=== PATIENT | female | born 1990 | race American Indian/Alaskan Native ===

== ENCOUNTER 2020-02-07 04:23 | Inpatient (IN) | payer OTHER ==
[2020-02-07] MEDS ORDERED: Tranexamic Acid 1,000 MG in Sodium Chloride 0.9% 100 ML IV PRN (08:27)
[2020-02-07] MEDS ORDERED: Lactated Ringers 1,000 ML IV ONE (08:27)
[2020-02-07] MEDS ORDERED: Ondansetron 4 MG/2 ML SDV IVPUSH PRN (08:27)
[2020-02-07] MEDS ORDERED: fentaNYL 100 MCG/2 ML SDV IVPUSH PRN (08:27)
[2020-02-07] MEDS ORDERED: Misoprostol 400 MCG (4 X 100 MCG TAB) RECTAL PRN (08:27)
[2020-02-07] MEDS ORDERED: Lidocaine 1% 30 ML SDV INJECT PRN (08:27)
[2020-02-07] MEDS ORDERED: Methylergonovine 0.2 MG/1 ML Amp IM PRN (08:27)
[2020-02-07] MEDS ORDERED: Sodium Chloride 0.9% 10 ML Syringe FLUSH PRN (08:27)
[2020-02-07] MEDS ORDERED: Carboprost Tromethamine 250 MCG/1 ML Amp IM PRN (08:27)
[2020-02-07] MEDS ORDERED: Butorphanol 2 MG/ML SDV IVPUSH PRN ×2 (08:27)
[2020-02-07] MEDS ORDERED: Lactated Ringers 1,000 ML IV SCH (08:30)
[2020-02-07] MEDS ORDERED: Oxytocin/Normal Saline 30 UNIT/500 ML BAG IV SCH (08:30)
--- NOTE | 2020-02-07 08:30 | PCM.LDHP ---
L&D History of Present Illness - General Date of Service: 02/07/20 Admit Problem/Dx: Patient Status Order with Admit Dx/Problem 02/07/20 08:28 Patient Status [ADT] Routine Admission Diagnosis/Problem Admission Diagnosis/Problem care Source of Information: Patient History Limitations: Reports: No Limitations - History of Present Illness Introduction:: 29-year-old at 39w0d presents to L&D for elective IOL. Patient is feeling well. Baby is active. She is having intermittent [place] contractions but nothing regular. No vaginal bleeding or leaking of fluid. No new concerns. has been complicated by impaired glucose tolerance. - Related Data Allergies/Adverse Reactions: Allergies Allergy/AdvReac Type Severity Reaction Status Date / Time ibuprofen Allergy Rash Verified 02/07/20 08:17 Home Medications: Home Meds #103/Iron Fumarate/Fa [ ] 1 tab PO DAILY 02/01/20 [History] Acetaminophen [Tylenol] 650 mg PO Q4H PRN tablet 02/08/20 [Rx] Docusate Sodium [Colace] 100 mg PO BID PRN cap 02/08/20 [Rx] Past Medical History Gastrointestinal History: Reports: Cholelithiasis Dermatologic History: Reports: Urticaria - Past Surgical History HEENT Surgical History: Reports: Adenoidectomy, Tonsillectomy Social & Family History - Family History Cardiac: Reports: CAD (Paternal grandfather, paternal uncle), Hypertension (Mother, father, sister, brother) Musculoskeletal: Reports: Arthritis (Mother) Psychiatric: Reports: Depression (Father) Endocrine/Metabolic: Reports: Diabetes, type II (Sister, Maternal grandmother, Paternal grandmother) Oncologic: Reports: Lung (Paternal aunt) - Tobacco Use Smoking Status *Q: Never Smoker - Sexual History Sexual History: Reports: Sexually Active, Single Partner - Living Situation & Occupation Living situation: Reports: Occupation: Employed H&P Review of Systems - Review of Systems: Review Of Systems: See Below General: Reports: No Symptoms HEENT: Reports: No Symptoms Pulmonary: Reports: No Symptoms Cardiovascular: Reports: No Symptoms Gastrointestinal: Reports: No Symptoms Genitourinary: Reports: No Symptoms Musculoskeletal: Reports: Back Pain Skin: Reports: No Symptoms Psychiatric: Reports: No Symptoms L&D Exam - Exam Exam: See Below - OB Specific Contraction Intensity: Irritability Movement: Active Heart Tones: Present Heart Tones per Min: 130 Heart Rate (FHR) Variability: Moderate (6-25 bmp) Presentation: Vertex - Alvarenga Score Alvarenga Score Cervix Position: Anterior Alvarenga Score Consistency: Soft Alvarenga Score Effacement: 51-70% Alvarenga Score Dilation: 3-4 cm Alvarenga Score Infant's Station: -1 ,0 Alvarenga Score Total: 10 - Exam General: Alert, Oriented Lungs: Clear to Auscultation, Normal Respiratory Effort Cardiovascular: Regular Rate, Regular Rhythm. No: Systolic Murmur, Diastolic Murmur Extremities: Pedal Edema (Trace bilaterally) Skin: Warm, Dry, Intact - Patient Data Lab Results Last 24 hrs: Laboratory Results - last 24 hr 02/07/20 Range/Units 07:50 SARS-CoV-2 RNA (RT-PCR) Negative (NEGATIVE) Result Diagrams: 02/07/20 08:29 - Problem List (1) care SNOMED Code(s): 748300342, 94297153, 496815668, 438986472 ICD Code: Z34.90 - ENCNTR FOR SUPRVSN OF NORMAL , UNSP, UNSP TRIMESTER Status: Acute (2) Impaired glucose in , antepartum SNOMED Code(s): 164208226, 603120127 ICD Code: O99.810 - ABNORMAL GLUCOSE COMPLICATING Status: Acute Problem List Initiated/Reviewed/Updated: Yes Orders Last 24hrs: Active Orders 24 hr Category Date Time Status Patient Status [ADT] Routine ADT 02/07/20 08:28 Ordered Communication Order [RC] ASDIRECTED Care 02/07/20 08:28 Ordered Heart Tones [RC] PER UNIT ROUTINE Care 02/07/20 08:28 Ordered Nitrous Oxide Delivery [RC] ASDIRECTED Care 02/07/20 08:30 Ordered Notify Provider Vital Signs OB [RC] ASDIRECTED Care 02/07/20 08:28 Ordered Notify Provider [RC] PRN Care 02/07/20 08:28 Ordered OB Discontinue Nitrous Oxide [RC] ASDIRECTED Care 02/07/20 08:30 Ordered Pump Management, Intrathecal [RC] ASDIRECTED Care 02/07/20 08:27 Ordered Up ad Paty [RC] ASDIRECTED Care 02/07/20 08:28 Ordered Vital Signs [RC] PER UNIT ROUTINE Care 02/07/20 08:28 Ordered Clear Liquid Diet [DIET] Diet 02/07/20 Lunch Ordered CBC W/O DIFF,HEMOGRAM [HEME] Routine Lab 02/07/20 08:16 Ordered Acetaminophen [Tylenol] Med 02/07/20 08:27 Ordered 650 mg PO Q4H PRN Butorphanol [Stadol] Med 02/07/20 08:27 Ordered 0.5 mg IVPUSH Q3H PRN Butorphanol [Stadol] Med 02/07/20 08:27 Ordered 1 mg IVPUSH Q3H PRN Carboprost Tromethamine [Hemabate DS] Med 02/07/20 08:27 Ordered 250 mcg IM ASDIRECTED PRN Lactated Ringers @ 125 MLS/HR(1000ml) Med 02/07/20 08:30 Ordered Lactated Ringers [Ringers, Lactated] 1,000 ml IV ASDIRECTED Lactated Ringers [Ringers, Lactated] 1,000 ml Med 02/07/20 08:27 Ordered IV BOLUS Lidocaine 1% [Xylocaine-MPF 1%] Med 02/07/20 08:27 Ordered 30 ml INJECT ASDIRECTED PRN Methylergonovine [Methergine] Med 02/07/20 08:27 Ordered 0.2 mg IM ASDIRECTED PRN Ondansetron [Zofran] Med 02/07/20 08:27 Ordered 4 mg IVPUSH Q4H PRN Oxytocin 30 Units in NS @ 2 MUNITS/MIN(500ml) Med 02/07/20 08:30 Ordered Oxytocin/Normal Saline [Pitocin in NS 30 UNIT/500 ML] 30 unit in 500 ml IV TITRATE Sodium Chloride 0.9% [Saline Flush] Med 02/07/20 08:27 Ordered 10 ml FLUSH ASDIRECTED PRN Tranexamic Acid [Cyklokapron] 1,000 mg Med 02/07/20 08:27 Ordered Sodium Chloride 0.9% [Normal Saline] 100 ml IV ONETIME fentaNYL [Sublimaze] Med 02/07/20 08:27 Ordered 100 mcg IVPUSH Q1H PRN miSOPROStoL [Cytotec] Med 02/07/20 08:27 Ordered 800 mcg RECTAL ASDIRECTED PRN Saline Lock Insert [OM.PC] Routine Oth 02/07/20 08:28 Ordered Resuscitation Status Routine Resus Stat 02/07/20 08:27 Ordered Medication Orders Acetaminophen (Tylenol) 650 mg PO Q4H PRN PRN Reason: Pain (Mild 1-3) and fever Butorphanol Tartrate (Stadol) 0.5 mg IVPUSH Q3H PRN PRN Reason: Pain Carboprost Tromethamine (Hemabate Ds) 250 mcg IM ASDIRECTED PRN PRN Reason: HEMORRHAGE Fentanyl (Sublimaze) 100 mcg IVPUSH Q1H PRN PRN Reason: Pain (moderate 4-6) Lactated Ringer's (Ringers, Lactated) 1,000 mls @ 999 mls/hr IV BOLUS ONE Stop: 02/07/20 09:27 Lactated Ringer's (Ringers, Lactated) 1,000 mls @ 125 mls/hr IV ASDIRECTED GERALDO Tranexamic Acid 1,000 mg/ (Sodium Chloride) 110 mls @ 660 mls/hr IV ONETIME PRN PRN Reason: Bleeding Oxytocin/Sodium Chloride (Pitocin In Ns 30 Unit/500 Ml) 30 unit in 500 mls @ 2 mls/hr IV TITRATE GERALDO; Protocol Lidocaine HCl (Xylocaine-Mpf 1%) 30 ml INJECT ASDIRECTED PRN PRN Reason: Perineal Repair Methylergonovine Maleate (Methergine) 0.2 mg IM ASDIRECTED PRN PRN Reason: Hemorrhage Misoprostol (Cytotec) 800 mcg RECTAL ASDIRECTED PRN PRN Reason: Hemorrhage Ondansetron HCl (Zofran) 4 mg IVPUSH Q4H PRN PRN Reason: Nausea/Vomiting Sodium Chloride (Saline Flush) 10 ml FLUSH ASDIRECTED PRN PRN Reason: Keep Vein Open Assessment/Plan Comment:: 29-year-old at 39w0d presenting for elective IOL 1. Initiate routine intrapartum orders 2. AROM performed for moderate clear fluid. Will monitor for increased contractions. Augment with pitocin if needed 3. Patient is not planning on intrathecal but is flexible. 4. Expectant management. Anticipate Octavia Pollard MD
--- NOTE | 2020-02-07 12:15 | PCM.DEL ---
L & D Note - General Info Date of Service: 02/07/20 Mother's Due Date: 02/14/20 - Delivery Note Labor: Induced by ARM Delivery Outcome: Livebirth Delivery Method: Spontaneous Vaginal Delivery-Single Infant Delivery Mode: Spontaneous Presentation: Vertex Nuchal Cord: None Anesthesia Type: None Amniotic Fluid Description: Clear Episiotomy Type: None Laceration: None Cord: 3 Vessels Estimated Blood Loss: 275 [place]: Bulb Syringe, Stimulated, Warmed, [place] Used Score 1 min: 8 Score 5 min: 9 Delivery Comments (Free Text/Narrative):: Patient presented for IOL at 0800. Patient was admitted. AROM was performed at 0820 for a moderate amount of clear fluid. Patient's cervix was checked after 2 hours and cervix was noted to be minimally changed. Patient desired to sit in the tub before pitocin was initiated to augment labor. After getting out of the tub, patient rapidly transitioned into active labor and progressed to complete dilation. Patient began to involuntarily push. I was called stat to the room and arrived to deliver a viable female with Apgars of 8 and 9 at 1 and 5 minutes respectively. was placed on patient's chest. Umbilical cord was clamped x2 and cut by patient's . Cord blood was collected. The plac enta delivered 5 minutes later. It was noted to be intact. Uterine massage was performed, and the uterus was noted to be firm. Perineum was examined and noted to be intact. Bleeding was appropriate. Patient tolerated the procedure well, and there were no immediate complications. - General Info Date of Service: 02/07/20 - Patient Data Weight - Most Recent: 92.986 kg Lab Results Last 24 Hours: Laboratory Results - last 24 hr 02/07/20 02/07/20 Range/Units 07:50 08:29 WBC 9.8 (5.0-10.0) 10^3/uL RBC 3.92 L (4.2-5.4) 10^6/uL Hgb 12.1 (12.0-16.0) g/dL Hct 34.8 L (37.0-47.0) % MCV 88.8 (80-100) fL MCH 30.9 (27.0-34.0) pg MCHC 34.8 (33.0-35.0) g/dL Plt Count 244 (150-450) 10^3/uL SARS-CoV-2 RNA (RT-PCR) Negative (NEGATIVE) Med Orders - Current: Current Medications Acetaminophen (Tylenol) 650 mg PO Q4H PRN PRN Reason: Pain (Mild 1-3) and fever Butorphanol Tartrate (Stadol) 0.5 mg IVPUSH Q3H PRN PRN Reason: Pain (moderate 4-6) Butorphanol Tartrate (Stadol) 1 mg IVPUSH Q3H PRN PRN Reason: Pain (severe 7-10) Carboprost Tromethamine (Hemabate Ds) 250 mcg IM ASDIRECTED PRN PRN Reason: HEMORRHAGE Fentanyl (Sublimaze) 100 mcg IVPUSH Q1H PRN PRN Reason: Pain (moderate 4-6) Last Admin: 02/07/20 11:42 Dose: 100 mcg Documented by: Lactated Ringer's (Ringers, Lactated) 1,000 mls @ 125 mls/hr IV ASDIRECTED GERALDO Last Admin: 02/07/20 11:46 Dose: 125 mls/hr Documented by: Tranexamic Acid 1,000 mg/ (Sodium Chloride) 110 mls @ 660 mls/hr IV ONETIME PRN PRN Reason: Bleeding Oxytocin/Sodium Chloride (Pitocin In Ns 30 Unit/500 Ml) 30 unit in 500 mls @ 2 mls/hr IV TITRATE GERALDO; Protocol Lidocaine HCl (Xylocaine-Mpf 1%) 30 ml INJECT ASDIRECTED PRN PRN Reason: Perineal Repair Methylergonovine Maleate (Methergine) 0.2 mg IM ASDIRECTED PRN PRN Reason: Hemorrhage Misoprostol (Cytotec) 800 mcg RECTAL ASDIRECTED PRN PRN Reason: Hemorrhage Ondansetron HCl (Zofran) 4 mg IVPUSH Q4H PRN PRN Reason: Nausea/Vomiting Last Admin: 02/07/20 11:44 Dose: 4 mg Documented by: Sodium Chloride (Saline Flush) 10 ml FLUSH ASDIRECTED PRN PRN Reason: Keep Vein Open Discontinued Medications Lactated Ringer's (Ringers, Lactated) 1,000 mls @ 999 mls/hr IV BOLUS ONE Stop: 02/07/20 09:27 - Problem List & Annotations (1) (normal spontaneous vaginal delivery) SNOMED Code(s): 07413848, 826205800 Code(s): O80 - ENCOUNTER FOR FULL-TERM UNCOMPLICATED DELIVERY Status: Acute - Problem List Review Problem List Initiated/Reviewed/Updated: Yes - My Orders Last 24 Hours: My Active Orders 02/07/20 08:27 Pump Management, Intrathecal [RC] ASDIRECTED Acetaminophen [Tylenol] 650 mg PO Q4H PRN Butorphanol [Stadol] 0.5 mg IVPUSH Q3H PRN Butorphanol [Stadol] 1 mg IVPUSH Q3H PRN Carboprost Tromethamine [Hemabate DS] 250 mcg IM ASDIRECTED PRN Lidocaine 1% [Xylocaine-MPF 1%] 30 ml INJECT ASDIRECTED PRN Methylergonovine [Methergine] 0.2 mg IM ASDIRECTED PRN Ondansetron [Zofran] 4 mg IVPUSH Q4H PRN Sodium Chloride 0.9% [Saline Flush] 10 ml FLUSH ASDIRECTED PRN Tranexamic Acid [Cyklokapron] 1,000 mg Sodium Chloride 0.9% [Normal Saline] 100 ml IV ONETIME fentaNYL [Sublimaze] 100 mcg IVPUSH Q1H PRN miSOPROStoL [Cytotec] 800 mcg RECTAL ASDIRECTED PRN Resuscitation Status Routine 02/07/20 08:28 Patient Status [ADT] Routine Communication Order [RC] ASDIRECTED Notify Provider Vital Signs OB [RC] ASDIRECTED Notify Provider [RC] PRN Up ad Paty [RC] ASDIRECTED Vital Signs [RC] 08,20 Saline Lock Insert [OM.PC] Routine 02/07/20 08:30 Nitrous Oxide Delivery [RC] ASDIRECTED OB Discontinue Nitrous Oxide [RC] ASDIRECTED Lactated Ringers [Ringers, Lactated] 1,000 ml IV ASDIRECTED Oxytocin/Normal Saline [Pitocin in NS 30 UNIT/500 ML] 30 unit in 500 ml IV TITRATE 02/07/20 Lunch Clear Liquid Diet [DIET] - Assessment Assessment:: 29-year-old now s/p at 39w0d - Plan Plan:: 1. Initiate routine orders 2. Plans to breastfeed 3. Anticipate discharge 02/09/2020 Octavia Pollard MD
[2020-02-07] MEDS ORDERED: Docusate Sodium 100 MG Cap PO PRN (12:16)
[2020-02-07] MEDS ORDERED: Acetaminophen/HYDROcodone 325-10 MG Tab PO PRN (12:16)
[2020-02-07] MEDS ORDERED: Simethicone 80 MG Tab.Chew PO PRN (12:16)
[2020-02-07] MEDS ORDERED: Oxytocin 10 Units/1 ML SDV IM PRN (12:16)
[2020-02-07] MEDS ORDERED: Benzocaine/Menthol 20%-0.5% Spray 56 GM Canister TOP PRN (12:16)
[2020-02-07] MEDS: Acetaminophen 325 MG Tab PO PRN ×2 (13:58→20:47)
[2020-02-08] MEDS: Acetaminophen 325 MG Tab PO PRN ×3 (01:08→10:56)
--- NOTE | 2020-02-09 23:21 | PCM.DCSUM1 ---
Discharge Summary - Hospital Course Free Text/Narrative:: 29-year-old PPD#2 s/p at 39w0d Diagnosis: Stroke: No - Discharge Data Discharge Date: 02/08/20 Discharge Disposition: Home, Self-Care 01 Condition: Good - Referral to Home Health Primary Care Physician: Riddhi Pollard MD - Discharge Diagnosis/Problem(s) (1) (normal spontaneous vaginal delivery) SNOMED Code(s): 14814098, [id number] ICD Code: O80 - ENCOUNTER FOR FULL-TERM UNCOMPLICATED DELIVERY Status: Acute - Patient Summary/Data Operative Procedure(s) Performed: None Complications: None Consults: None Labs Pending at D/C: None Recommended Follow-up Testing/Procedures: None Planned Operative Procedure(s) after DC: None Hospital Course: Please see subjective section - Patient Instructions Diet: Usual Diet as Tolerated Activity: As Tolerated, No Lifting Over 20 Pounds Driving: May Drive Today Showering/Bathing: May Shower Notify Provider of: Fever, Increased Pain - Discharge Plan *PRESCRIPTION DRUG MONITORING PROGRAM REVIEWED*: Not Applicable *COPY OF PRESCRIPTION DRUG MONITORING REPORT IN PATIENT DREW: Not Applicable Home Medications: Home Meds #103/Iron Fumarate/Fa [ ] 1 tab PO DAILY 02/01/20 [History] Acetaminophen [Tylenol] 650 mg PO Q4H PRN tablet 02/08/20 [Rx] Docusate Sodium [Colace] 100 mg PO BID PRN cap 02/08/20 [Rx] Patient Handouts: Care After Vaginal Delivery Referrals: Octavia Pollard MD [Primary Care Provider] - (6-8 weeks for visit) - Discharge Summary/Plan Comment DC Time >30 min.: No Discharge Summary/Plan Comment: Discharge home today. Patient will follow-up in 6-8 weeks for routine visit and sooner as needed. Routine discharge information will be provided by nursing staff. - General Info Date of Service: 02/08/20 Functional Status: Reports: Pain Controlled, Tolerating Diet, Ambulating, Urinating - Review of Systems General: Reports: No Symptoms HEENT: Reports: No Symptoms Pulmonary: Reports: No Symptoms Cardiovascular: Reports: No Symptoms Gastrointestinal: Reports: No Symptoms Musculoskeletal: Reports: Back Pain Skin: Reports: No Symptoms - Patient Data Vitals - Most Recent: Last Vital Signs Temp 36.2 C 02/08/20 08:00 Pulse 62 02/08/20 08:00 Resp 16 02/08/20 08:00 BP 136/83 02/08/20 08:00 Pulse Ox 100 02/08/20 08:00 Weight - Most Recent: 92.986 kg Med Orders - Current: Current Medications Discontinued Medications Acetaminophen (Tylenol) 650 mg PO Q4H PRN PRN Reason: Pain (Mild 1-3) and fever Last Admin: 02/08/20 10:56 Dose: 650 mg Documented by: Hydrocodone Bitart/Acetaminophen ([place] 325-10 Mg) 1 tab PO Q6H PRN PRN Reason: Pain (moderate 4-6) Benzocaine/Menthol (Dermoplast Pain Relief [place]) 0 gm TOP Q4H PRN PRN Reason: Perineal comfort measures Butorphanol Tartrate (Stadol) 0.5 mg IVPUSH Q3H PRN PRN Reason: Pain (moderate 4-6) Butorphanol Tartrate (Stadol) 1 mg IVPUSH Q3H PRN PRN Reason: Pain (severe 7-10) Carboprost Tromethamine (Hemabate Ds) 250 mcg IM ASDIRECTED PRN PRN Reason: HEMORRHAGE Docusate Sodium (Colace) 100 mg PO BID PRN PRN Reason: Constipation Last Admin: 02/08/20 09:24 Dose: 100 mg Documented by: Fentanyl (Sublimaze) 100 mcg IVPUSH Q1H PRN PRN Reason: Pain (moderate 4-6) Last Admin: 02/07/20 11:42 Dose: 100 mcg Documented by: Lactated Ringer's (Ringers, Lactated) 1,000 mls @ 999 mls/hr IV BOLUS ONE Stop: 02/07/20 09:27 Last Admin: 02/07/20 13:14 Dose: Not Given Documented by: Lactated Ringer's (Ringers, Lactated) 1,000 mls @ 125 mls/hr IV ASDIRECTED GERALDO Last Infusion: 02/07/20 15:05 Dose: 0 mls/hr Documented by: Tranexamic Acid 1,000 mg/ (Sodium Chloride) 110 mls @ 660 mls/hr IV ONETIME PRN PRN Reason: Bleeding Oxytocin/Sodium Chloride (Pitocin In Ns 30 Unit/500 Ml) 30 unit in 500 mls @ 2 mls/hr IV TITRATE GERALDO; Protocol Last Titration: 02/07/20 15:05 Dose: 0 munits/min, 0 mls/hr Documented by: Lidocaine HCl (Xylocaine-Mpf 1%) 30 ml INJECT ASDIRECTED PRN PRN Reason: Perineal Repair Methylergonovine Maleate (Methergine) 0.2 mg IM ASDIRECTED PRN PRN Reason: Hemorrhage Misoprostol (Cytotec) 800 mcg RECTAL ASDIRECTED PRN PRN Reason: Hemorrhage Ondansetron HCl (Zofran) 4 mg IVPUSH Q4H PRN PRN Reason: Nausea/Vomiting Last Admin: 02/07/20 11:44 Dose: 4 mg Documented by: Oxytocin (Pitocin) 10 unit IM ONETIME PRN PRN Reason: Bleeding Simethicone (Simethicone) 80 mg PO Q4H PRN PRN Reason: Gas Sodium Chloride (Saline Flush) 10 ml FLUSH ASDIRECTED PRN PRN Reason: Keep Vein Open Gato Cr (Medi-Pads) 1 each TOP Q4HR PRN PRN Reason: Perineal Comfort Measure - Exam General: Reports: Alert, Oriented Lungs: Reports: Clear to Auscultation, Normal Respiratory Effort Cardiovascular: Reports: Regular Rate, Regular Rhythm, No Murmurs GI/Abdominal Exam: Soft Extremities: Pedal Edema (Trace bilaterally) Skin: Reports: Warm, Dry, Intact Psy/Mental Status: Reports: Alert, Normal Affect, Normal Mood
== END 2020-02-08 12:45 | disposition home or self-care (01) | DRG 807 ==
LOC: DL.OB 07:37 → UNDOADMOB 07:37 → DL.OB 08:28 → OBSVTOIN 12:02
PROVIDERS: ADMIT Family Medicine; ATTEND Family Medicine
PROC: 10E0XZZ Delivery of Products of Conception, External Approach (ICD-10-PCS; principal; 2020-02-07)
PROC: 10907ZC Drainage of Amniotic Fluid, Therapeutic from Products of Conception, Via Natural or Artificial Opening (ICD-10-PCS; 2020-02-07)
DX: O99.814 Abnormal glucose complicating childbirth (principal); Z37.0 Single live birth; Z3A.39 39 weeks gestation of pregnancy; Z20.828 Contact with and (suspected) exposure to other viral communicable diseases
CPT/HCPCS: 36415; 59409; 85027; A9270-GY; J2405; J2590; J3010; J7120; U0002

== ENCOUNTER 2021-04-07 20:45 | Emergency (ER) | payer OTHER ==
--- NOTE | 2021-04-07 21:54 | CR ---
PROCEDURE INFORMATION: Exam: XR Right Foot Exam date and time: 04/07/2021 9:10 PM Age: 31 years old Clinical indication: Other: Tripped/pain; Additional info: Inverted foot heard pop TECHNIQUE: Imaging protocol: XR Right foot. Views: 3 or more views. COMPARISON: No relevant prior studies available. FINDINGS: Bones/joints: Normal. Soft tissues: Normal. IMPRESSION: No acute findings.
--- NOTE | 2021-04-07 22:49 | EDM.PDOC ---
ED HPI GENERAL MEDICAL PROBLEM - General Chief Complaint: Lower Extremity Injury/Pain Stated Complaint: INJURED FOOT Time Seen by Provider: 04/07/21 22:37 Source of Information: Reports: Patient, RN Notes Reviewed History Limitations: Reports: No Limitations - History of Present Illness INITIAL COMMENTS - FREE TEXT/NARRATIVE: Pt was working in the kitchen earlier today when she slipped on some water and landed wrong on her right ankle. She felt and heard a snap. It wasn't too painful right away, but later when she tried to walk on it, she noted intense pain and decided to come be evaluated. She denies any previous injury to the foot or ankle. She feels the pain on the lateral part of her ankle. No numbness or tingling noted in the foot or toes. Onset: Today Right Feet Pain Score (Numeric/FACES): 10 - Related Data Allergies Allergy/AdvReac Type Severity Reaction Status Date / Time ibuprofen Allergy Rash Verified 04/07/21 20:58 Home Meds: Home Meds #103/Iron Fumarate/Fa [ ] 1 tab PO DAILY 02/01/20 [History] Acetaminophen [Tylenol] 650 mg PO Q4H PRN tablet 02/08/20 [Rx] Docusate Sodium [Colace] 100 mg PO BID PRN cap 02/08/20 [Rx] Miscellaneous Medical Supply [DME for Prescription] 1 each .XX ASDIRECTED #1 each 04/07/21 [Rx] Past Medical History Gastrointestinal History: Reports: Cholelithiasis PARTS PERSON History: Reports: Dermatologic History: Reports: Urticaria - Infectious Disease History Infectious Disease History: Reports: Human Papilloma Virus (HPV) - Past Surgical History HEENT Surgical History: Reports: Adenoidectomy, Tonsillectomy Social & Family History - Family History Family Medical History: No Pertinent Family History Cardiac: Reports: CAD, Hypertension Musculoskeletal: Reports: Arthritis Psychiatric: Reports: Depression Endocrine/Metabolic: Reports: Diabetes, type II Oncologic: Reports: Lung - Tobacco Use Tobacco Use Status *Q: Never Tobacco User - Caffeine Use Caffeine Use: Reports: None - Recreational Drug Use Recreational Drug Use: No - Sexual History Sexual History: Reports: Sexually Active, Single Partner - Living Situation & Occupation Living situation: Reports: Occupation: Employed Review of Systems - Review of Systems Review Of Systems: Comprehensive ROS is negative, except as noted in HPI. ED EXAM, GENERAL - Physical Exam Exam: See Below Exam Limited By: No Limitations General Appearance: Alert, WD/WN, No Apparent Distress Eye Exam: Bilateral Eye: Normal Inspection Ears: Normal External Exam Throat/Mouth: Normal Voice, No Airway Compromise Head: Atraumatic, Normocephalic Neck: Supple, Non-Tender Respiratory/Chest: No Respiratory Distress, Normal Breath Sounds Cardiovascular: Normal Peripheral Pulses, Regular Rate, Rhythm GI/Abdominal: Soft, No Distention (Female) Exam: Deferred Rectal (Female) Exam: Deferred Extremities: Normal Inspection, Other (right ankle pain to the ATFL) Neurological: Alert, Oriented, No Motor/Sensory Deficits Psychiatric: Normal Affect, Normal Mood Skin Exam: Warm, Dry, Intact, Normal Color, No Rash Course - Vital Signs Last Recorded V/S: Last Vital Signs Temp 97.2 F 04/07/21 20:57 Pulse 83 04/07/21 20:57 Resp 16 04/07/21 20:57 BP 137/80 04/07/21 20:57 Pulse Ox 100 04/07/21 20:57 Departure - Departure Time of Disposition: 22:52 Disposition: Home, Self-Care 01 Condition: Good Clinical Impression: First degree ankle sprain Qualifiers: Encounter type: initial encounter Laterality: right Qualified Code(s): S93.401A - Sprain of unspecified ligament of right ankle, initial encounter - Discharge Information *PRESCRIPTION DRUG MONITORING PROGRAM REVIEWED*: Not Applicable *COPY OF PRESCRIPTION DRUG MONITORING REPORT IN PATIENT DREW: Not Applicable Prescriptions: Miscellaneous Medical Supply [DME for Prescription] 1 each .XX ASDIRECTED #1 each Instructions: Ankle Sprain, Phase I Rehab-SportsMed Additional Instructions: Over the counter pain medications and ice therapy as needed for pain Diomedes wrap for compression Wear brace for 1-3 weeks for comfort Follow up with primary care provider in 3-5 days Sepsis Event Note (ED) - Evaluation Sepsis Screening Result: No Definite Risk - Focused Exam Vital Signs: Vital Signs Temp Pulse Resp BP Pulse Ox 04/07/21 20:57 97.2 F 83 16 137/80 100
== END 2021-04-07 23:05 | disposition home or self-care (01) ==
LOC: DL.ED 20:45
DX: S93.401A Sprain of unspecified ligament of right ankle, initial encounter (principal); Z88.8 Allergy status to other drugs, medicaments and biological substances; X50.1XXA Overexertion from prolonged static or awkward postures, initial encounter
CPT/HCPCS: 73630-RT; 99283-25